=== PATIENT | female | born 1995 | race Caucasian/White ===

== ENCOUNTER 2022-04-17 13:12 | Outpatient (REF) | payer MEDICAID, SELFPAY ==
[2022-04-17 12:01] LABS: *AMPHETAMINES SCREEN URINE Negative (Negative); *BARBITURATES SCREEN URINE Negative (Negative); *BENZODIAZEPINES SCREEN URINE Negative (Negative); Cannabinoids THC Negative (Negative); Cocaine Screen,Urine Negative (Negative); METHADONE URINE SCREEN Positive (Negative); OPIATES URINE SCREEN Negative (Negative); Tricyclic Antidepressants Negative (Negative)
[2022-04-22 14:29] LABS: Fentanyl Interpretation Negative.; Fentanyl by LC-MS/MS Not Detected; Norfentanyl by LC-MS/MS Not Detected
[2022-04-26 11:15] LABS: Buprenorphine Negative ng/mL (Cutoff: 5.0); Norbuprenorphine Negative ng/mL (Cutoff: 2.5)
== END 2022-04-17 13:13 | disposition home or self-care (01) ==
LOC: LBN 13:12
PROVIDERS: Visit Provider Advanced Practice Midwife
DX: O99.321 Drug use complicating pregnancy, first trimester (principal); F11.20 Opioid dependence, uncomplicated; Z3A.10 10 weeks gestation of pregnancy
CPT/HCPCS: 80307; 80348; 80354

== ENCOUNTER 2022-05-09 02:24 | Outpatient (CLI) | payer MEDICAID, SELFPAY ==
[2022-05-09 11:45] LABS: Panorama Kit Sent via Fed Ex
[2022-05-09 11:54] LABS: Abs Immature Grans 0.02 10^3/uL (0.0-0.06); Absolute Basophil Count 0.04 10^3/uL (0.0-0.2); Absolute Eosinophil Count 0.18 10^3/uL (0.0-0.7); Absolute Monocyte Count 0.48 10^3/uL (0.1-0.8); Absolute Neutrophil Count 5.15 10^3/uL (1.2-6.7); Basophils % 0.5; Eosinophils % 2.3; HCT 38.5 % (36.0-46.0); HGB 13.2 g/dL (11.2-15.7); Immature Grans % 0.3; Lymphocytes % 26.3; MCHC 34.3 % (32.0-36.0); MCV 90 fL (80-95); Neutrophils % 64.6; Platelet Count 217 10^3/uL (130-400); RBC 4.26 10^6/uL (3.93-5.22); RDW 11.9 % (11.7-14.6); RDW-SD 39.3 fL; WBC 7.97 10^3/uL (4.4-10.8)
[2022-05-09 12:10] LABS: Hemoglobin A1C 4.8 % (<5.7)
[2022-05-09 12:16] LABS: ALT 15 U/L (14-59); AST 15 U/L (15-37); Albumin 3.5 g/dL (3.4-5.0); Alkaline Phosphatase 62 U/L (46-116); Anion Gap 7.2 mmol/L (3-11); BUN 12 mg/dL (7-18); Bilirubin, Total 0.2 mg/dL (0.2-1.0); CO2 26.8 mmol/L (21.0-32.0); CREATININE 0.7 mg/dL (0.55-1.02); Calcium 9.1 mg/dL (8.5-10.1); Chloride 102 mmol/L (98-107); Estimated GFR 123.78 (mL/min/1.73m2); Glucose 91 mg/dL (74-106); Potassium 3.9 mmol/L (3.5-5.1); Sodium 136 mmol/L (136-145)
[2022-05-09 15:21] LABS: *AMPHETAMINES SCREEN URINE Negative (Negative); *BARBITURATES SCREEN URINE Negative (Negative); *BENZODIAZEPINES SCREEN URINE Negative (Negative); Cannabinoids THC Negative (Negative); Cocaine Screen,Urine Negative (Negative); METHADONE URINE SCREEN Positive (Negative); OPIATES URINE SCREEN Negative (Negative); Tricyclic Antidepressants Negative (Negative)
[2022-05-10 08:44] LABS: Hepatitis B Surface Ag Negative (Negative)
[2022-05-10 09:01] LABS: Hepatitis C Ab w Rflx HCV PCR Negative (Negative)
[2022-05-10 09:30] LABS: HIV-1/2 Ag & Ab Screen Negative (Negative)
[2022-05-10 10:28] LABS: Varicella IgG Antibody Positive (See Note)
[2022-05-10 10:38] LABS: Rubella IgG Ab (UVM) Positive (See Note)
[2022-05-10 18:26] LABS: Syphilis IgG w/Reflex Nonreactive (Nonreactive)
[2022-05-15 14:21] LABS: Buprenorphine Negative ng/mL (Cutoff: 5.0); Norbuprenorphine Negative ng/mL (Cutoff: 2.5)
== END 2022-05-09 02:25 | disposition home or self-care (01) ==
LOC: LBO 02:24
PROVIDERS: Visit Provider Advanced Practice Midwife
DX: Z34.91 Encounter for supervision of normal pregnancy, unspecified, first trimester
CPT/HCPCS: 36415; 80053; 80307; 80348; 86787; 86803; 86850; 86900; 86901; 87340; 87389; 83036; 85025; 86762; 86780; 87086

== ENCOUNTER 2022-06-13 16:23 | Outpatient (REF) | payer MEDICAID, SELFPAY ==
[2022-06-13 15:36] LABS: *AMPHETAMINES SCREEN URINE Negative (Negative); *BARBITURATES SCREEN URINE Negative (Negative); *BENZODIAZEPINES SCREEN URINE Negative (Negative); Cannabinoids THC Positive (Negative); Cocaine Screen,Urine Negative (Negative); METHADONE URINE SCREEN Positive (Negative); OPIATES URINE SCREEN Negative (Negative)
[2022-06-13 15:37] LABS: Tricyclic Antidepressants Negative (Negative)
[2022-06-14 13:46] LABS: Chlamydia Result Negative (Negative); GC Result Negative (Negative)
[2022-06-19 18:51] LABS: Buprenorphine Negative ng/mL (Cutoff: 5.0); Norbuprenorphine Negative ng/mL (Cutoff: 2.5)
== END 2022-06-13 16:24 | disposition home or self-care (01) ==
LOC: LBN 16:23
PROVIDERS: Visit Provider Advanced Practice Midwife
DX: Z34.92 Encounter for supervision of normal pregnancy, unspecified, second trimester (principal); Z11.3 Encounter for screening for infections with a predominantly sexual mode of transmission; Z3A.15 15 weeks gestation of pregnancy
CPT/HCPCS: 80307; 80348; 87491; 87591

== ENCOUNTER 2022-07-05 01:30 | Outpatient (CLI) | payer MEDICAID, SELFPAY ==
--- NOTE | 2022-07-05 07:15 | DI.US_ITS ---
Exam(s) US OB 2-3 TRIMESTER W MOD EXAM: US OB 2-3 TRIMESTER W MOD CLINICAL HISTORY: survey,z34.90. TECHNIQUE: Transabdominal obstetrical ultrasound performed. COMPARISON: No exams were available for comparison FINDINGS: Number of fetuses: 1 position: Cephalic heart rate: 138bpm Placental location: There is a grade 1 anterior placenta. The placental tip is 5 cm from the interna l os. No evidence of previa. Amniotic fluid index: Amount of fluid is within normal limits. ANATOMICAL SURVEY: The nose and lips were not well visualized on the current examination. In addition the right lower extremity tibia, fibula in foot can be imaged in the single plane sugge sting a clubfoot deformity. The four-chamber heart, left ventricular outflow tract, right ventricula r outflow tract, stomach, urinary bladder, kidneys, three-vessel cord, cord insertion site, foot post erior fossa, lateral ventricles, palate and spine were unremarkable. BIOMETRIC DATA: BPD: 4cm, 18weeks 1day HC: 15.34cm, 18weeks 2days AC: 13.25cm, 18weeks 5days FL: 2.67cm, 18weeks 1day Cisterna magna: 5.3mm Cerebellum: 1.81cm EFW: 239.84g, 0.53lb, 63.8% Composite Age: 18weeks 2days EVANGELISTA: 12/04/2020 Heart Rate: 138bpm IMPRESSION: 1. Single live intrauterine gestation as above. 2. Incomplete anatomic evaluation. The nose and lips were could not be well visualized d ue to the lie of the fetus. 3. 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 4. The patient is to return on 07/09/2022 to complete the anatomic survey and to re-evaluate the lower extremities. DATA REPOSITORY:
== END 2022-07-05 01:50 ==
LOC: DI 01:30
PROVIDERS: Visit Provider Advanced Practice Midwife
DX: Z34.92 Encounter for supervision of normal pregnancy, unspecified, second trimester (principal); Z3A.18 18 weeks gestation of pregnancy
CPT/HCPCS: 76805

== ENCOUNTER 2022-07-09 01:21 | Outpatient (CLI) | payer MEDICAID, SELFPAY ==
--- NOTE | 2022-07-09 | DI.US_ITS ---
Exam(s) US OB F/U FACIAL/LVOT/RVOT EXAM: US OB F/U FACIAL/LVOT/RVOT CLINICAL HISTORY: F/U SURVEY, NOSE/LIPS/FEET. TECHNIQUE: Transabdominal obstetrical ultrasound performed. COMPARISON: US US OB 2-3 TRIMESTER W MOD from 07/05/2022 FINDINGS: Number of fetuses: 1 position: Cephalic. Placental location: There is a grade 1 anterior placenta. No evidence of previa. Cervical length is 4.4 cm. The nose and lips have a normal appearance. Both lower extremities were evaluated and appear unremarkable. No sonographic evidence to suggest cl ubfeet are seen on this examination. Heart Rate: 136bpm Amniotic fluid index: Visually, amount of fluid is within normal limits. IMPRESSION: 1. Single live intrauterine gestation as above. 2. The nose, lips and lower extremities are unremarkable. No sonographic evidence to suggest c lubfeet. DATA REPOSITORY:
== END 2022-07-09 01:41 ==
LOC: DI 01:21
PROVIDERS: Visit Provider Advanced Practice Midwife
DX: Z34.92 Encounter for supervision of normal pregnancy, unspecified, second trimester (principal); Z3A.18 18 weeks gestation of pregnancy
CPT/HCPCS: 76815

== ENCOUNTER 2022-09-06 01:24 | Outpatient (CLI) | payer MEDICAID, SELFPAY ==
[2022-09-06 15:19] LABS: HCT 36.9 % (36.0-46.0); HGB 12.5 g/dL (11.2-15.7); MCH 30.6 pg (27.0-33.0); MCHC 33.9 % (32.0-36.0); MCV 90 fL (80-95); MPV 8.6 fL (8.0-11.0); Platelet Count 202 10^3/uL (130-400); RBC 4.08 10^6/uL (3.93-5.22); RDW 13.2 % (11.7-14.6); RDW-SD 43.5 fL; WBC 10.96 10^3/uL (4.4-10.8)
[2022-09-06 16:28] LABS: Glucose 81 mg/dL (74-106)
[2022-09-06 17:37] LABS: Hemoglobin A1C 4.7 % (<5.7)
== END 2022-09-06 01:25 | disposition home or self-care (01) ==
LOC: LBO 01:25
PROVIDERS: Visit Provider Advanced Practice Midwife
DX: Z34.92 Encounter for supervision of normal pregnancy, unspecified, second trimester (principal); Z3A.27 27 weeks gestation of pregnancy
CPT/HCPCS: 36415; 82947; 85027; 83036

== ENCOUNTER 2022-11-01 00:12 | Outpatient (CLI) | payer MEDICAID, SELFPAY ==
--- NOTE | 2022-11-01 08:00 | DI.US_ITS ---
Exam(s) US OB CLAUDIA WEIGHT EXAM: US OB CLAUDIA WEIGHT CLINICAL HISTORY: growth,opiate dependence,f11.20. TECHNIQUE: Transabdominal obstetrical ultrasound performed. COMPARISON: US POCUS EXAM from 04/25/2022 US US OB 2-3 TRIMESTER W MOD from 07/05/2022 US US OB F/U FACIAL/LVOT/RVOT from 07/09/2022 FINDINGS:: Number of fetuses: One. position: Vertex. Placental location: Anterior no evidence of previa. BIOMETRIC DATA: BPD: 81mm = 32+3 weeks HC: 303mm = 33+4 weeks AC: 286mm = 32+ 0 weeks FL: 68 mm = 35+ 0 weeks EFW: 2182 Gms = 9% Composite Age: 33+3 weeks EDC: 17 December 2022 Heart Rate: 145BPM Amniotic fluid index: 15.5 cm. Amount of fluid is visually within normal limits. IMPRESSION: size and weight are below the expected range. DATA REPOSITORY:
== END 2022-11-01 00:32 ==
LOC: DI 00:12
PROVIDERS: Visit Provider Advanced Practice Midwife
DX: F11.20 Opioid dependence, uncomplicated (principal); Z34.93 Encounter for supervision of normal pregnancy, unspecified, third trimester
CPT/HCPCS: 76816